=== PATIENT | male | born 1960 | race Caucasian/White ===

== ENCOUNTER 2021-02-03 16:33 | Emergency (ER) | payer BC, OTHER ==
--- NOTE | 2021-02-03 17:48 | EDM.PDOC ---
ED HPI GENERAL MEDICAL PROBLEM - General Chief Complaint: Laceration Stated Complaint: FISH HOOK Time Seen by Provider: 02/03/21 16:58 Source of Information: Reports: Patient History Limitations: Reports: No Limitations - History of Present Illness INITIAL COMMENTS - FREE TEXT/NARRATIVE: 60 yo male presents with fish hook in left index finger. tetanus up to date - Related Data Allergies Allergy/AdvReac Type Severity Reaction Status Date / Time No Known Allergies Allergy Verified 02/03/21 17:00 Home Meds: Home Meds atorvaSTATin [Lipitor] 40 mg PO BEDTIME 02/03/21 [History] lisinopriL [Lisinopril] 5 mg PO DAILY 02/03/21 [History] Past Medical History HEENT History: Reports: None Cardiovascular History: Reports: CAD, High Cholesterol, Hypertension, CT, SOB on Exertion Respiratory History: Reports: None Gastrointestinal History: Reports: None Genitourinary History: Reports: None Musculoskeletal History: Reports: None Neurological History: Reports: None Psychiatric History: Reports: None Endocrine/Metabolic History: Reports: None Hematologic History: Reports: None Immunologic History: Reports: None Oncologic (Cancer) History: Reports: None Dermatologic History: Reports: None - Infectious Disease History Infectious Disease History: Reports: Chicken Pox Other Infectious Disease History: covid vacc - Past Surgical History HEENT Surgical History: Reports: None Cardiovascular Surgical History: Reports: Coronary Artery Stent, Percutaneous Transluminal Angioplasty GI Surgical History: Reports: None Musculoskeletal Surgical History: Reports: None Social & Family History - Tobacco Use Tobacco Use Status *Q: Former Tobacco User Used Tobacco, but Quit: Yes Month/Year Tobacco Last Used: few years ago ED ROS GENERAL - Review of Systems Review Of Systems: See Below Constitutional: Denies: Fever, Chills Respiratory: Denies: Shortness of Breath, Wheezing Cardiovascular: Denies: Chest Pain ED EXAM, SKIN/RASH Exam: See Below General Appearance: Alert, No Apparent Distress Skin: Other (fishhook in left index knuckle) ED SKIN PROCEDURES - Additional/Other Procedure(s) Other (Free Text) Procedure(s): fish hook removal - infiltrate lidocaine 1%. hook removed with counter traction Course - Vital Signs Last Recorded V/S: Last Vital Signs Temp 36.4 C 02/03/21 16:59 Pulse 70 02/03/21 16:59 Resp 16 02/03/21 16:59 BP 136/80 02/03/21 16:59 Pulse Ox 96 02/03/21 16:59 - Orders/Labs/Meds Meds: Medications Discontinued Medications Generic Name Dose Route Start Last Admin Trade Name Yaron PRN Reason Stop Dose Admin Lidocaine HCl 5 ml 02/03/21 17:13 02/03/21 17:25 Lidocaine 1% 5 Ml Sdv INJECT 02/03/21 17:14 5 ml ONETIME ONE Administration Departure - Departure Time of Disposition: 17:47 Disposition: Home, Self-Care 01 Condition: Good Clinical Impression: Puncture wound - injury - Discharge Information *PRESCRIPTION DRUG MONITORING PROGRAM REVIEWED*: Not Applicable *COPY OF PRESCRIPTION DRUG MONITORING REPORT IN PATIENT BUTCH: Not Applicable Instructions: Puncture Wound Referrals: PCP,None [Primary Care Provider] - Forms: ED Department Discharge Additional Instructions: wash with warm soapy water observe for signs of infection Sepsis Event Note (ED) - Evaluation Sepsis Screening Result: No Definite Risk - Focused Exam Vital Signs: Vital Signs Temp Pulse Resp BP Pulse Ox 02/03/21 16:59 36.4 C 70 16 136/80 96 02/03/21 16:54 36.4 C 70 16 136/80 96
== END 2021-02-03 17:58 | disposition home or self-care (01) ==
LOC: JP.ED 16:33
DX: S60.451A Superficial foreign body of left index finger, initial encounter (principal); E78.00 Pure hypercholesterolemia, unspecified; I10 Essential (primary) hypertension; I25.2 Old myocardial infarction; Z79.899 Other long term (current) drug therapy; Z72.0 Tobacco use; W45.8XXA Other foreign body or object entering through skin, initial encounter
CPT/HCPCS: 99282